=== PATIENT | male | born 2000 | race African-American/Black ===

== ENCOUNTER 2024-08-14 20:14 | Emergency (ER) | payer OTHER, SELFPAY ==
[2024-08-14 21:02] VITALS: BP 139/80; PULSE 80; TEMP 36.6; O2SAT 100; BMI 26.4
--- NOTE | 2024-08-14 21:09 | ED_ITS ---
Documented by User: JOSEPH Lawrence 08/14/24 21:54 HPI - Male Genitourinary General Chief complaint: Urogenital-Male Stated complaint: GROIN INJURY Time Seen by Provider: 08/14/24 20:59 Source: patient Mode of arrival: walk-in Limitations: no limitations History of Present Illness HPI Narrative: 24-year-old male who resides in [place] currently home from school presents to the ER with concerns of right testicular pain. Patient notes pain and swelling that got worse over the last 24 to 48 hours. Patient states 5 days ago he was closing a door and his hand swung striking himself in the right testicle. Patient states that was initially a painful, but symptoms improved. He has not been wearing scrotal supports and notes that symptoms have been worse over the past 24 to 48 hours when they were initially feeling better. He denies any prior surgery he denies any new sexual partners he denies any dysuria or penile discharge. PCP Dr. Ishmael Chandler MD Complaint: Reports testicle pain, testicle swelling and genital injury (right testicle. ); Denies dysuria or hernia Onset (ago): day(s) (5) Duration: Reports constant and progressively worsening Location: Reports right testicle Radiation: Reports right testicle Severity: moderate Quality: Reports aching Relieving factors: Reports none Exacerbating factors: Reports movement Context: Reports trauma; Denies new medication, new sexual partner, lifting or known STD exposure Related Data Home Medications ?Medication ?Instructions ?Recorded ?Confirmed naproxen sodium 550 mg tablet 550 mg PO Q12H PRN pain 08/14/24 08/14/24 Allergies Allergy/AdvReac Type Severity Reaction Status Date / Time No Known Drug Allergies Allergy Verified 08/14/24 21:09 Review of Systems ROS Constitutional Denies: fever, chills or change in weight Eyes Denies: change in vision Ears, nose, mouth, and throat Denies: throat pain or neck pain Cardiovascular Denies: chest pain or palpitations Respiratory Denies: shortness of breath or cough Gastrointestinal Denies: abdominal pain or nausea Genitourinary Reports: genital pain and scrotal swelling; Denies: painful urination, urinary frequency, genital lesion or penile discharge Integumentary/Breast Denies: rash or itching Neurological Denies: headache Psychiatric Denies: anxiety Endocrine Denies: excessive urination Hematologic/Lymphatic Denies: easy bruising PFSH PFSH Social History Little interest or pleasure in doing things: not at all Feeling down, depressed, or hopeless: not at all Exam Narrative Exam Narrative: Nurses notes and vital signs reviewed and patient is not hypoxic. General: The patient appears well and in no apparent distress. Patient is resting comfortably on cart. Skin: Warm, dry, no pallor noted. abrasion right arm. pt reports having EMG . Head: Normocephalic, atraumatic Neck: Supple, trachea mid-line, no tenderness, no lymphadenopathy Eye: Pupils are equal, round and reactive to light, EOMI Ears, Nose, Mouth, and Throat: external exam unremarkable. Cardiovascular: Regular Rate and Rhythm Respiratory: Patient is in no distress, no accessory muscle use, lungs are clear to auscultation, no wheezing, rales or rhonchi. Chest Wall: no tenderness Back: non-tender, no CVA tenderness Musculoskeletal: normal ROM, no tenderness, no swelling GI: Normal bowel sounds, no tenderness to palpation, no masses appreciated. No rebound, guarding, or rigidity noted. : SINDY Elam at bedside. Patient examined standing, the right testicle is swollen firm concerning for hematoma, approx 1.5 to 2 times size of left testes diminished cremasteric reflex on the right, normal on the left. Mild tenderness in the right inguinal canal with no palpable hernia left side is nontender. No external rash or lesions noted no penile drainage noted Neurological: A&O x4 Psychiatric: Cooperative Constitutional Vital Signs, click to edit/add: Last Vital Signs Temp 98 F 08/14/24 21:02 Pulse 80 08/14/24 21:02 Resp 12 08/14/24 21:02 BP 139/80 08/14/24 21:02 Pulse Ox 100 08/14/24 21:02 O2 Del Method Room Air 08/14/24 21:02 Course Vital Signs Vital signs: Vital Signs Temperature 98 F 08/14/24 21:02 Pulse Rate 80 08/14/24 21:02 Respiratory Rate 12 08/14/24 21:02 Blood Pressure 139/80 08/14/24 21:02 Pulse Oximetry 100 08/14/24 21:02 Oxygen Delivery Method Room Air 08/14/24 21:02 Temperature 98 F 08/14/24 21:02 Pulse Rate 80 08/14/24 21:02 Respiratory Rate 12 08/14/24 21:02 Blood Pressure 139/80 08/14/24 21:02 Pulse Oximetry 100 08/14/24 21:02 Oxygen Delivery Method Room Air 08/14/24 21:02 MDM - Male Genitourinary MDM Narrative Medical decision making narrative: Patient visiting family admits he is driving back to [place] this evening agreeable to oral Motrin, he took some Tylenol prior to arrival. Ice pack was applied to the right testicle, recommended scrotal supports. Ultrasound will be performed to rule out torsion: Lab Data Labs: Lab Results 08/14/24 Range/Units 21:48 Urine Color Yellow (YELLOW) Urine Clarity Clear (CLEAR) Urine pH 6.0 (5.0-9.0) Ur Specific Jesse >=1.030 A (1.005-1.025) Urine Protein 30 A (NEG/TRACE) mg/dL Urine Glucose (UA) Negative (NEGATIVE) mg/dL Urine Ketones Trace A (NEGATIVE) mg/dL Urine Occult Blood Trace-i (NEGATIVE) Urine Nitrite Negative (NEGATIVE) Urine Bilirubin Negative (NEGATIVE) Urine Urobilinogen 0.2 (0.2-1.0) EU/dL Ur Leukocyte Esterase Small A (NEGATIVE) Urine RBC 5-10 A (0-2) #/HPF Urine WBC 50-75 A (NONE SEEN) #/HPF Ur Squamous Epith Cells None seen (NONE/RARE) #/LPF Urine Crystals None seen (None Seen) #/HPF Urine Bacteria Small A (NONE SEEN) #/HPF Urine Casts None seen (NONE SEEN) #/LPF Urine Mucus Large A (NONE SEEN) Ur Culture Indicated? Yes Discharge Plan Discharge Chief Complaint: Urogenital-Male Clinical Impression: Pain in right testicle, Contusion of scrotum and testes, initial encounter, Traumatic hematoma of scrotum Patient Disposition: Home, Self-Care Time of Disposition Decision: 23:22 Condition: Good Prescriptions / Home Meds: No Action naproxen sodium 550 mg tablet 550 mg PO Q12H PRN (Reason: pain) Print Language: Spanish Instructions: Hematoma (ED), Scrotal Pain (ED) Referrals: Physician,Non-Staff, MD [Primary Care Provider] - 1 week Documented by User: Nieves Carranza MD 08/14/24 23:25 HPI - Male Genitourinary General Chief complaint: Urogenital-Male Stated complaint: GROIN INJURY Time Seen by Provider: 08/14/24 20:59 Related Data Home Medications ?Medication ?Instructions ?Recorded ?Confirmed naproxen sodium 550 mg tablet 550 mg PO Q12H PRN pain 08/14/24 08/14/24 Allergies Allergy/AdvReac Type Severity Reaction Status Date / Time No Known Drug Allergies Allergy Verified 08/14/24 21:09 PFSH PFSH Social History Little interest or pleasure in doing things: not at all Feeling down, depressed, or hopeless: not at all Exam Constitutional Vital Signs, click to edit/add: Last Vital Signs Temp 98 F 08/14/24 21:02 Pulse 80 08/14/24 21:02 Resp 12 08/14/24 21:02 BP 139/80 08/14/24 21:02 Pulse Ox 100 08/14/24 21:02 O2 Del Method Room Air 08/14/24 21:02 Course Vital Signs Vital signs: Vital Signs Temperature 98 F 08/14/24 21:02 Pulse Rate 80 08/14/24 21:02 Respiratory Rate 12 08/14/24 21:02 Blood Pressure 139/80 08/14/24 21:02 Pulse Oximetry 100 08/14/24 21:02 Oxygen Delivery Method Room Air 08/14/24 21:02 Temperature 98 F 08/14/24 21:02 Pulse Rate 80 08/14/24 21:02 Respiratory Rate 12 08/14/24 21:02 Blood Pressure 139/80 08/14/24 21:02 Pulse Oximetry 100 08/14/24 21:02 Oxygen Delivery Method Room Air 08/14/24 21:02 MDM - Male Genitourinary MDM Narrative Medical decision making narrative: Patient visiting family admits he is driving back to [place] this evening agreeable to oral Motrin, he took some Tylenol prior to arrival. Ice pack was applied to the right testicle, recommended scrotal supports. Ultrasound will be performed to rule out torsion: This patient was seen and evaluated in conjunction with the physician grants assistant. He had a traumatic injury to his right testicle several days ago. I did not repeat his physical exam. Ultrasound of the testes and scrotum is included in the body of this report and shows a varicocele and hydrocele of the right testicle. It also shows swelling consistent with a hematoma. Blood flow to both testicles is normal indicating there is no testicular torsion. The results of the ultrasound was discussed with the patient and he was given a copy. He was encouraged to use scrotal support, and will be given ibuprofen for control of his pain. He states the ibuprofen he received in the emergency department h elped his pain immensely. 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 Medical Records Medical records narrative: The [address] [address] Ultrasound Report Signed Patient: DURAN HOLGUIN MR#: [id number] : 2000 Acct:[id number] Age/Sex: 24 / M ADM Date: 08/14/24 Loc: ER Attending Dr: Ordering Physician: Nilton Greenfield Date of Service: 08/14/24 Procedure(s): US scrotum doppler Accession Number(s): [id number] cc: Nilton Greenfield; Physician,Non-Staff M.D.~ The [address] [address] Patient Name: DURAN HOLGUIN MRN: [facility]:[id number] date: 2000 Sex: M Assigned Patient Location: ER Current Patient Location: ER Accession/Order Number: [id number] Exam Date: 08/14/2024 21:55 Report Date: 08/14/2024 22:59 At the request of: NILTON GREENFIELD Procedure: US scrotum doppler EXAM: ULTRASOUND TESTICULAR HISTORY: 24-year-old male with testicular pain.Patient hit himself in the right groin 5 days ago now with pain and swelling. TECHNIQUE: Multiple sonographic images are taken of the testicles using both grayscale, color doppler and spectral doppler analysis. COMPARISON: None. FINDINGS: RIGHT TESTIS: The right testicle measures 4.0 x 2.3 2.9 cm. Testicular parenchyma is within normal limits. Blood flow to the right testis is within normal. Arterial and venous blood flow is demonstrated. There is a large varicocele. There is a moderate debris filled hydrocele, measures 2.7 cm. RIGHT EPIDIDYMIS: The right epididymis 8 mm. No epididymal cysts or masses within the visualized portions. Blood flow to the epididymis is within normal limits. RIGHT SCROTUM: Scrotal soft tissue demonstrates heterogeneous masslike mixed echogenic area seen within the right scrotal wall. This is the area of patient's pain and is hypervascular. LEFT TESTIS: The left testis measures 4.7 x 2.1 x 2.8 cm. The parenchyma is within normal limits. Blood flow is within normal. Arterial and venous blood flow is demonstrated. There is no significant varicocele. There is no significant hydrocele. LEFT EPIDIDYMIS: The left epididymis measures 9.4 mm. No epididymal cysts or masses within the visualized portions. US/US scrotum doppler IMPRESSION: Hypervascular scrotal soft tissue heterogeneous mass like area within the right scrotal sac in the area where patient states that he hit himself in the groin 5 days ago. Please correlate for possible hematoma. There is any clinical concern for infection and/or Hunter's, cross-sectional imaging with CT scan would help better delineate along with possible urology consultation.. Short-term follow-up ultrasound is recommended to exclude other etiologies. Electronically authenticated by: PATITO PERKINS Date: 08/14/2024 22:59 Lab Data Labs: Lab Results 08/14/24 Range/Units 21:48 Urine Color Yellow (YELLOW) Urine Clarity Clear (CLEAR) Urine pH 6.0 (5.0-9.0) Ur Specific Jesse >=1.030 A (1.005-1.025) Urine Protein 30 A (NEG/TRACE) mg/dL Urine Glucose (UA) Negative (NEGATIVE) mg/dL Urine Ketones Trace A (NEGATIVE) mg/dL Urine Occult Blood Trace-i (NEGATIVE) Urine Nitrite Negative (NEGATIVE) Urine Bilirubin Negative (NEGATIVE) Urine Urobilinogen 0.2 (0.2-1.0) EU/dL Ur Leukocyte Esterase Small A (NEGATIVE) Urine RBC 5-10 A (0-2) #/HPF Urine WBC 50-75 A (NONE SEEN) #/HPF Ur Squamous Epith Cells None seen (NONE/RARE) #/LPF Urine Crystals None seen (None Seen) #/HPF Urine Bacteria Small A (NONE SEEN) #/HPF Urine Casts None seen (NONE SEEN) #/LPF Urine Mucus Large A (NONE SEEN) Ur Culture Indicated? Yes Discharge Plan Discharge Chief Complaint: Urogenital-Male Clinical Impression: Pain in right testicle, Contusion of scrotum and testes, initial encounter, Traumatic hematoma of scrotum Patient Disposition: Home, Self-Care Time of Disposition Decision: 23:22 Condition: Good Prescriptions / Home Meds: No Action naproxen sodium 550 mg tablet 550 mg PO Q12H PRN (Reason: pain) Print Language: Spanish Instructions: Hematoma (ED), Scrotal Pain (ED) Referrals: Physician,Non-Staff, MD [Primary Care Provider] - 1 week
--- NOTE | 2024-08-14 21:19 | PC.NURSE ---
patient complains of right testicle injury on 08/10/2024, patient said i hit my right testicle with the car door, rates pain 5/10 now. this patient aware that we need a urine sample and ultra sound tech was called in for ultra sound of your testicles. this patient unable to provide urine sample and this time but known we do need a urine sample from him. this patient voices no other complaints and shows no signs of distress
[2024-08-14] MEDS: IBUPROFEN 600 MG TABLET PO (21:25)
[2024-08-14 21:53] LABS: Bilirubin Urine NEGATIVE (NEGATIVE); Blood Urine TRACE-I (NEGATIVE); Clarity Urine CLEAR (CLEAR); Color Urine YELLOW (YELLOW); Glucose Urine UA NEGATIVE (NEGATIVE); Ketones Urine TRACE mg/dL (NEGATIVE); Leukocyte Esterase Urine SMALL (NEGATIVE); Nitrite Urine NEGATIVE (NEGATIVE); Protein Urine 30 mg/dL (NEG/TRACE); Specific Gravity Urine >=1.030 (1.005-1.025); Urobilinogen Urine 0.2 EU/dL (0.2-1.0)
--- NOTE | 2024-08-14 21:53 | PC.NURSE ---
urine sample collected and sen to lab dept, this patient aware waiting on ultra sound tech to arrive. this patient voices no concerns and shows no signs of distress
[2024-08-14 21:54] LABS: Urine Microscopic Indicated YES
[2024-08-14 22:03] LABS: Bacteria Urine SMALL #/HPF (NONE SEEN); Crystals Seen? None Seen #/HPF (None Seen); Mucus Urine LARGE (NONE SEEN); WBC Urine 50-75 #/HPF (NONE SEEN)
[2024-08-14 22:04] LABS: Cast Seen? NONE SEEN #/LPF (NONE SEEN); Squamous Epithelial Cell Urine NONE SEEN #/LPF (NONE/RARE); Urine Culture Indicated YES
--- NOTE | 2024-08-14 22:06 | PC.NURSE ---
i as told the ultra sound tech is here and in the room with this patient
--- NOTE | 2024-08-14 22:24 | PC.NURSE ---
i updated this patient that we are waiting on ultra sound result, this patient awake and alert sitting upright on the bed talking on his cell phone. this patient voices no concerns and shows no signs of distress
== END 2024-08-14 23:33 | disposition home or self-care (01) ==
PROVIDERS: Personal Emergency Response Attendant; Emergency Provider Emergency Medicine
DX: S30.22XA Contusion of scrotum and testes, initial encounter (principal); X58.XXXA Exposure to other specified factors, initial encounter; N50.811 Right testicular pain
CPT/HCPCS: 76870; 81001; 87086; 93976; 99284